=== PATIENT | female | born 1975 | race Native Hawaiian/Other Pacific Islander ===

== ENCOUNTER 2017-12-15 14:33 | Emergency (ER) | payer BC, OTHER ==
[~2017-12-15] VITALS: Ht 152.4 cm; Wt 68.9 kg
[2017-12-15 15:21] LABS: PLATELET COUNT 205 K/uL (152-353)
[2017-12-15 15:41] LABS: POTASSIUM 3.9 mmol/L (3.6-5.2)
[2017-12-15 19:10] VITALS: BP 133/81; TEMP 98.5
== END 2017-12-15 19:10 | disposition home or self-care (01) ==
LOC: ED 14:33
DX: K52.89 Other specified noninfective gastroenteritis and colitis (principal)
CPT/HCPCS: 36415; 80053; 81000; 81025; 85027; 99283; Q9963

== ENCOUNTER 2019-03-27 18:20 | Outpatient (CLI) | payer BC, OTHER | END 2019-03-27 21:54 | disposition home or self-care (01) | LOC: LAB 18:20 | DX: R07.89 Other chest pain (principal) | CPT/HCPCS: 84484 ==

== ENCOUNTER 2020-06-23 16:30 | Emergency (ER) | payer OTHER ==
[~2020-06-23] VITALS: Ht 152.4 cm; Wt 74.4 kg
[2020-06-23 16:35] VITALS: TEMP 98
[2020-06-23 17:23] LABS: PLATELET COUNT 269 K/uL (152-353)
[2020-06-23 17:24] LABS: SODIUM 137 mmol/L (136-145)
[2020-06-23 18:30] VITALS: BP 125/84
== END 2020-06-23 18:30 | disposition home or self-care (01) ==
LOC: ED 16:30
PROVIDERS: Emergency Medicine Emergency Medical Services
DX: R07.89 Other chest pain (principal); M54.12 Radiculopathy, cervical region
CPT/HCPCS: 80053; 84484; 85027; 87651; 93005; 96374; 99284; J1885